=== PATIENT | female | born 1955 | race African-American/Black ===

== ENCOUNTER → 2016-06-16 | Outpatient (CLI) | payer BC ==
[2016-03-24 11:19] VITALS: BP 146/78
== END ==
LOC: RAD 10:05
PROVIDERS: ATTEND Internal Medicine
DX: R20.2 Paresthesia of skin (principal); M54.17 Radiculopathy, lumbosacral region

== ENCOUNTER 2016-10-09 09:20 | Emergency (ER) | payer BC ==
[2016-10-09 09:28] VITALS: BP 163/79; BMI 42.3
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
== END 2016-10-09 10:49 | disposition home or self-care (01) ==
LOC: ER 09:34
DX: S60.221A Contusion of right hand, initial encounter (principal); X58.XXXA Exposure to other specified factors, initial encounter; Y92.9 Unspecified place or not applicable
CPT/HCPCS: 73130; 99282

== ENCOUNTER 2017-02-10 21:26 | Emergency (ER) | payer BC ==
[2017-02-10 21:38] VITALS: BMI 44.6
--- NOTE | 2017-02-10 21:43 | DR.GENAD ---
HPI - PCP Primary Care Physician: CLIVE - HPI Comment HPI Comment: WORSE TONIGHT. NO FEVER. NO EAR DRAINAGE. NO HEARING CHANGE. - Complaint/Symptoms Chief Complaint Doctors Comments: LEFT EAR PAIN RADIATING TO BACK OF LEFT EAR AND LT NECK TIMES 2 DAYS. Chief Complaint:: PT STATES" RIGHT BEHIND MY LEFT EAR HURTS MY HEAD AND NECK HURT ON THE SAME SIDE" - Nurses notes reviewed Nurses Notes Review: Yes - Source History Provided: Patient - Mode of Arrival Mode of Arrival: Ambulatory - Timing Onset of Chief Complaint: 02/08/17 Came on: Suddenly - Duration Duration: Constant Duration: Days - Severity Severity: Moderate PMH - PMH Past Medical History: Yes Past Medical History: Dyslipidemia, GERD, Hypertension Past Surgical History: Yes Surgical History: Appendectomy, , Tonsillectomy - Family History History of Family Medical Conditions: Yes Family Medical History: Diabetes Mellitus, Cancer, Heart Failure, Hypertension - Social History Does any household member use tobacco: No Alcohol Use: None Do you use any recreational Drugs:: No Lives With: Family Lives Where: Home - infectious screening In the last 2 months have you had wt loss of >10#?: NO Have you had fever, night sweats or hemotysis?: No Have you traveled outside the country in the last 6 months?: No Isolation: Standard ROS - Review of Systems Constitutional: No Symptoms Reported Eyes: No Symptoms Reported ENTM: Ear Pain. negative: Nose Discharge, Nose Congestion, Throat Pain Respiratoy: No Symptoms Reported Cardiovascular: No Symptoms Reported Gastrointestinal/Abdominal: No Symptoms Reported Genitourinary: No Symptoms Reported Neurological: No Symptoms Reported Musculoskeletal: No Symptoms Reported, Foot Integumentary: No Symptoms Reported Hematologic/Lymphatic: No Symptoms Reported Endocrine: No Symptoms Reported All Other Systems: Reviewed and Negative PE - Vital Signs Vitals: Temperature 98.1 F Pulse Rate [Left Brachial] 76 Pulse Rate 80 Respiratory Rate 18 Blood Pressure [Left Arm] 168/86 Blood Pressure [Right Arm] 146/78 Blood Pressure 176/96 O2 Sat by Pulse Oximetry 98 - General Limitations: No Limitations General Appearance: Alert - Head Head Exam: Normal Inspection - Eyes Eye exam: Normal Appearance - ENT ENT Exam: Normal Oropharynx, Mucous Membranes Moist. negative: TM's Normal Bilaterally (TM INFLAME LT EAR.) External Ear Exam: Mastoid Tenderness, Pain with Movement, External Tenderness TM/Canal Exam: Bilateral Erythema Nose Exam: Normal Nose Exam Mouth Exam: Normal Inspection Throat Exam: Normal Inspection - Neck Neck Exam: Trachea Midline, Tenderness (LATERAL LEFT NECK.). negative: Meningismus, Lymphadenopathy - Chest Chest Inspection: Symmetric Chest Wall Rise. negative: Tenderness - Respiratory Respiratory Exam: Normal Lung Sounds Bilat Respiratory Exam: Bilateral Rhonchi, Lower Rhonchi - Cardiovascular Cardiovascular Exam: Regular Rate, Normal Rhythm, Normal Heart Sounds - Abdominal Exam Abdominal Exam: Normal Bowel Sounds, Soft. negative: Tenderness - Extremities Extremities Exam: Tenderness - Back Back Exam: Normal Inspection - Neurologic Neurological Exam: Alert, Oriented X3 - Psychiatric Psychiatric Exam: Normal Affect, Normal Mood - Skin Skin Exam: Normal Color MDM - Additional Information Additional Information Obtained From: Family - Differential Diagnosis Differential Diagnosis: LEFT EAR PAIN, MASTOID PAIN LEFT, LATERAL LEFT NECKK PAIN, OTITIS MEDIA, Course - Treatment Treatment: SEE ORDERS. - Education/Counseling Education/Counseling: Patient, Family, Education Educated On: Treatment, Diagnosis, Needs for Follow Up ROR - XRAY XRAY Interpreted by: Radiologist XRAY Findings: REPORT DISCUSS WITH PATIENT. - Diagnosis Discharge Problem: Otitis media, Pain of left mastoid - Discharge Plan Disposition: 01 HOME, SELF-CARE Condition: Stable Prescriptions: Acetaminophen with Codeine [Tylenol/Codeine #3 300-30 mg] 1 tab PO Q6H PRN #15 tab PRN Reason: Pain Amoxicillin/Potassium Clav [Augmentin Xr 1,000-62.5 Tab] 1 tab PO Q12H #20 tab.sr Ibuprofen [MOTRIN TAB 800 MG *] 800 mg PO Q8H PRN 30 Days #90 tab PRN Reason: Pain/Inflammation - Follow ups/Referrals Follow ups/Referrals: Jose Boyce [Primary Care Provider] - 2 days - Instructions Instructions: Otitis Media, Adult, [id number] Additional Instructions: RETURN TO ED IF WORSE.
[2017-02-10] MEDS ORDERED: TORADOL 60 MG VIAL IM ONE (21:46)
[2017-02-10] MEDS ORDERED: ROCEPHIN VIAL 1 GM IM ONE (21:46)
[2017-02-10] MEDS ORDERED: TORADOL 30 MG VIAL ONE ×2 (21:57→22:02)
[2017-02-10] MEDS ORDERED: ROCEPHIN VIAL 1 GM ONE (21:57)
--- NOTE | 2017-02-10 22:36 | CT ---
CT brain without contrast Indication: Left ear and neck pain Comparison: None available the Technique: Multiple axial images of the brain were obtained from the skull base to the vertex without administra tion of IV contrast. Findings: There is no opacification of the left mastoid air cells. No acute intraparenchymal hemorrhage or mass can be identified. No extra-axial fluid collections are seen. No alteration in the attenuation of the brain parenchyma can be identified to suggest acute o r subacute ischemic change. The ventricular system is symmetric and nondilated. The extracranial st ructures are grossly unremarkable. IMPRESSION: 1. No acute intracranial process is identified. Reported By:
--- NOTE | 2017-02-10 22:38 | CT ---
CT neck soft tissues without contrast Indication: Left-sided neck, ear and head pain Technique: Helical CT images of the neck soft tissues were obtained without IV contrast. Reformatted images in the coronal and sagittal planes were also generated for review. Comparison: None Findings: Limited images of the skullbase demonstrate no acute abnormality. Evaluation is severely limited without intravenous contrast. Given these limitations, the nasopharynx , oropharynx, hypopharynx and larynx are grossly normal in appearance. The base of the tongue and lym phoid tissues of Waldeyer's ring are also grossly normal. The parotid, submandibular and thyroid glan ds are unremarkable. No discrete mass lesions, fluid collection or lymphadenopathy is identified with in the neck. Review of bone windows demonstrate mild degenerative disc disease and facet arthropathy of the cervic al spine, most significant at C6-C7. The visualized upper lungs are clear. Impression: Mild degenerative changes of the cervical spine, as above. Otherwise, grossly unremarkable noncontrast CT of the neck soft tissues Reported By:
[2017-02-10 23:16] VITALS: BP 168/86
== END 2017-02-10 23:17 | disposition home or self-care (01) ==
LOC: ER 21:29
DX: H66.92 Otitis media, unspecified, left ear (principal); H92.02 Otalgia, left ear
CPT/HCPCS: 70450; 70490; 96372; 99283; J0696; J1885

== ENCOUNTER 2017-05-06 08:17 | Emergency (ER) | payer BC ==
[2017-05-06 08:28] VITALS: BMI 43.8
[2017-05-06] MEDS ORDERED: CATAPRES TAB 0.2 MG PO ONE ×2 (08:29→09:29)
--- NOTE | 2017-05-06 08:30 | DR.DIZZY ---
HPI - Time seen Time seen: 08:25 - Complaint Chief Complaint Doctor Comments: Patient presents via [facility] with complaint of dizziness this morning upon awakening. She admits to a frontal headache, throbbing and weakness. She aslo admits to chest heaviness. She denies nausea, vomiting or diarrhea. She admits to a history of hypertension. - Duration Duration: Since Onset Duration: Hours - Location of Weakness Weakness Location: None - Context Onset: While asleep Does pt take pot. toxic medication?: No History of: None Stroke Symptoms: Dizziness - Severity Severity: Normal activity level - Modifying factors Worsens: Nothing - Associated signs and symptoms Associated Signs and Symptoms: Headache PMH - PMH Past Medical History: Dyslipidemia, GERD, Hypertension Past Surgical History: Yes Surgical History: Appendectomy, , Tonsillectomy - Family History Family Medical History: Diabetes Mellitus, Cancer, Heart Failure, Hypertension - Social History Do you use any recreational Drugs:: No ROS - Review of Systems Constitutional: Weakness Eyes: No Symptoms Reported ENTM: No Symptoms Reported Respiratoy: No Symptoms Reported Cardiovascular: No Symptoms Reported Gastrointestinal/Abdominal: No Symptoms Reported Genitourinary: No Symptoms Reported Neurological: No Symptoms Reported Musculoskeletal: No Symptoms Reported Integumentary: No Symptoms Reported Hematologic/Lymphatic: No Symptoms Reported Endocrine: No Symptoms Reported Psychiatric: No Symptoms Reported All Other Systems: Reviewed and Negative PE - Vital Signs Vitals: Temperature 98.7 F Pulse Rate [Right Brachial] 81 Pulse Rate 69 Respiratory Rate 16 Blood Pressure [Left Arm] 168/86 Blood Pressure [Right Arm] 182/83 Blood Pressure 180/83 O2 Sat by Pulse Oximetry 100 - General Limitations: No Limitations General Appearance: Alert. negative: Lethargic, Obtunded - Head Head Exam: Normal Inspection, Atraumatic - Eyes Eye exam: Normal Appearance, PERRL, EOMI Pupils: Regular, Round: Bilateral Sclera/Conjunctival: Normal Inspection: Bilateral Anterior Chamber: Normal Inspection: Bilateral Posterior Chamber: Deferred: Bilateral - ENT ENT Exam: Normal Exam, Normal Oropharynx - Neck Neck Exam: Normal Inspection, Full ROM - Chest Chest Inspection: Normal Inspection, Symmetric Chest Wall Rise - Respiratory Respiratory Exam: Bilateral Clear to Auscultation - Cardiovascular Cardiovascular Exam: Regular Rate - Abdominal Exam Abdominal Exam: Normal Inspection, Normal Bowel Sounds Abdominal Tenderness: negative: RUQ, RLQ, LUQ, LLQ, Epigastrium, Suprapubic, Diffuse, Mild, Moderate, Severe, Other - Rectal Rectal Exam: Deferred - Extremeties Extremities Exam: Normal Inspection, Full ROM - Back Back Exam: Normal Inspection - Neurologic Neurological Exam: Alert, Oriented X3, CN II-XII Intact Cranial Nerve Exam: EOM Function (II, III, IV, ): Normal Motor Strength - LUE: 3/5 Upper Motor Neuron Exam: Reinaldo Neglect: Normal Sensory Exam Upper Extremity: Light Touch: Normal Sensory Exam Lower Extremity: Light Touch: Normal - Psychiatric Psychiatric Exam: Normal Affect - Skin Skin Exam: Warm, Dry, Intact Course - Reevaluation 1st: Improved ROR - Labs Reviewed Result Diagrams: 05/06/17 08:37 05/06/17 08:37 Laboratory: WBC 5.7 X10^3/uL (3.6-10.0) 05/06/17 08:37 RBC 4.18 X10^6/uL (3.5-5.4) 05/06/17 08:37 Hgb 11.9 g/dL (12.0-16.0) L 05/06/17 08:37 Hct 35.8 % (36.0-47.0) L 05/06/17 08:37 MCV 85.5 fL (80.0-100.0) 05/06/17 08:37 MCH 28.6 pg (27.0-34.0) 05/06/17 08:37 MCHC 33.4 g/dL (33.0-35.0) 05/06/17 08:37 RDW 13.7 % (11.6-16.5) 05/06/17 08:37 Plt Count 133 X10^3/uL (150.0-450.0) L 05/06/17 08:37 MPV 10.7 fL (7.4-11.0) 05/06/17 08:37 Neut % (Auto) 47.4 % (42.0-75.0) 05/06/17 08:37 Lymph % (Auto) 35.1 % (21.0-51.0) 05/06/17 08:37 [place] % (Auto) 11.5 % (0.0-13.0) 05/06/17 08:37 Eos % (Auto) 4.9 % (0.9-2.9) H 05/06/17 08:37 Baso % (Auto) 1.1 % (0.2-1.0) H 05/06/17 08:37 Neut # (Auto) 2.7 x10^3/uL (2.2-4.8) 05/06/17 08:37 Lymph # (Auto) 2.0 X10^3/uL (1.3-2.9) 05/06/17 08:37 [place] # (Auto) 0.7 x10^3/uL (0.3-0.8) 05/06/17 08:37 Eos # (Auto) 0.3 x10^3/uL (0.0-0.2) H 05/06/17 08:37 Baso # (Auto) 0.1 X10^3/uL (0.0-0.1) 05/06/17 08:37 Absolute Nucleated RBC 0.0 /100WBC 05/06/17 08:37 Sodium 140 mmol/L (136-145) 05/06/17 08:37 Corrected Sodium 141 mmol/L (136-145) 05/06/17 08:37 Potassium 3.5 mmol/L (3.5-5.1) 05/06/17 08:37 Chloride 104 mmol/L (98-107) 05/06/17 08:37 Carbon Dioxide 30.4 mmol/L (21-32) 05/06/17 08:37 BUN 18 mg/dL (7-18) 05/06/17 08:37 Creatinine 0.89 mg/dL (0.55-1.02) 05/06/17 08:37 Est GFR (MDRD) Af Amer > 60 (>60) 05/06/17 08:37 Est GFR (MDRD) Non-Af > 60 (>60) 05/06/17 08:37 Glucose 125 mg/dL (65-99) H 05/06/17 08:37 POC Glucose (mg/dL) 138 mg/dL (65-99) H 05/06/17 08:34 Calcium 8.3 mg/dL (8.5-10.1) L 05/06/17 08:37 Corrected Calcium 8.9 mg/dL (8.5-10.1) 05/06/17 08:37 Magnesium 1.9 mg/dL (1.7-2.9) 05/06/17 08:37 Total Bilirubin 0.50 mg/dL (0.2-1.0) 05/06/17 08:37 AST 17 Units/L (15-37) 05/06/17 08:37 ALT 25 Units/L (12-78) 05/06/17 08:37 Alkaline Phosphatase 66 Units/L (46-116) 05/06/17 08:37 Creatine Kinase 183 Units/L (26-192) 05/06/17 08:37 CK-MB (CK-2) 1.4 ng/mL (0-4.0) 05/06/17 08:37 CK/CKMB % Calc 0.8 % (<4) 05/06/17 08:37 Troponin I < 0.02 ng/mL (0-1.5) 05/06/17 08:37 Total Protein 7.4 g/dL (6.4-8.2) 05/06/17 08:37 Albumin 3.3 g/dL (3.4-5.0) L 05/06/17 08:37 Globulin 4.1 g/dL (2.5-4.5) 05/06/17 08:37 Albumin/Globulin Ratio 0.8 Ratio (1.1-2.1) L 05/06/17 08:37 Specimen Type Clean catch urine 05/06/17 09:01 Urine Color Yellow (YELLOW) 05/06/17 09:01 Urine Appearance Clear (CLEAR) 05/06/17 09:01 Urine pH 7.0 (5.0 - 8.0) 05/06/17 09:01 Ur Specific [place] 1.010 (1.000-1.030) 05/06/17 09:01 Urine Protein Negative (NEGATIVE) 05/06/17 09:01 Urine Glucose (UA) Negative (NEGATIVE) 05/06/17 09:01 Urine Ketones Negative (NEGATIVE) 05/06/17 09:01 Urine Occult Blood Negative (NEGATIVE) 05/06/17 09:01 Urine Nitrite Negative (NEGATIVE) 05/06/17 09:01 Urine Bilirubin Negative (NEGATIVE) 05/06/17 09:01 Urine Urobilinogen Normal (NORMAL) 05/06/17 09:01 Ur Leukocyte Esterase Negative (NEGATIVE) 05/06/17 09:01 Urine RBC None seen /HPF (NONE SEEN) 05/06/17 09:01 Urine WBC None seen /HPF (NONE SEEN) 05/06/17 09:01 Ur Squamous Epith Cells Rare /HPF (NEGATIVE) 05/06/17 09:01 Amorphous Sediment Trace /HPF (NEGATIVE) 05/06/17 09:01 Urine Bacteria Negative /HPF (NEGATIVE) 05/06/17 09:01 Ur Culture Indicated? No/not indicated 05/06/17 09:01 - XRAY XRAY Interpreted by: Radiologist (CT Brain: No acute intracranial process can be identified. 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 Lungs and pleural spaces are clear. Osseous structures are intact. Impression: hypertensive configuration. No acute cardiopulmonary disease.) - Diagnosis Discharge Problem: Dizziness Hypertension Qualifiers: Hypertension type: essential hypertension Qualified Code(s): I10 - Essential ( primary) hypertension - Discharge Plan Condition: Stable - Follow ups/Referrals Follow ups/Referrals: Jose Boyce [Primary Care Provider] - 3 days - Instructions
[2017-05-06] MEDS ORDERED: NS 1000 ML 1,000 ML ONE (08:31)
[2017-05-06] MEDS ORDERED: CATAPRES TAB 0.2 MG ONE ×2 (08:35→09:32)
[2017-05-06 08:45] LABS: BASOPHILS # (AUTO) 0.1 X10^3/uL (0.0-0.1); BASOPHILS % (AUTO) 1.1 % (0.2-1.0); EOSINOPHILS # (AUTO) 0.3 x10^3/uL (0.0-0.2); EOSINOPHILS % (AUTO) 4.9 % (0.9-2.9); HEMATOCRIT 35.8 % (36.0-47.0); HEMOGLOBIN 11.9 g/dL (12.0-16.0); LYMPHOCYTES % (AUTO) 35.1 % (21.0-51.0); MEAN CORPUSCULAR HEMOGLOBIN 28.6 pg (27.0-34.0); MEAN CORPUSCULAR HGB CONC 33.4 g/dL (33.0-35.0); MEAN CORPUSCULAR VOLUME 85.5 fL (80.0-100.0); MEAN PLATELET VOLUME 10.7 fL (7.4-11.0); MONOCYTES # (AUTO) 0.7 x10^3/uL (0.3-0.8); MONOCYTES % (AUTO) 11.5 % (0.0-13.0); NEUTROPHILS # (AUTO) 2.7 x10^3/uL (2.2-4.8); NEUTROPHILS % (AUTO) 47.4 % (42.0-75.0); PLATELET COUNT 133 X10^3/uL (150.0-450.0); RED BLOOD COUNT 4.18 X10^6/uL (3.5-5.4); RED CELL DISTRIBUTION WIDTH 13.7 % (11.6-16.5); WHITE BLOOD COUNT 5.7 X10^3/uL (3.6-10.0)
--- NOTE | 2017-05-06 08:57 | CT ---
HISTORY: Headache, dizziness, nausea Study: CT brain without contrast Comparison: 02/10/2017. Technique: Multiple axial images of the brain were obtained from the skull base to the vertex without administra tion of IV contrast. Findings: No acute intraparenchymal hemorrhage or mass can be identified. No extra-axial fluid collections are seen. No alteration in the attenuation of the brain parenchyma can be identified to suggest acute o r subacute ischemic change. The ventricular system is symmetric and nondilated. There is chronic pe riventricular white matter disease observed. IMPRESSION: 1. No acute intracranial process can be identified. 2. 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 Reported By:
[2017-05-06] MEDS ORDERED: NS 1000 ML 1,000 ML IV SCH (09:00)
[2017-05-06 09:06] LABS: BLOOD UREA NITROGEN 18 mg/dL (7-18); CALCIUM 8.3 mg/dL (8.5-10.1); CARBON DIOXIDE 30.4 mmol/L (21-32); CHLORIDE 104 mmol/L (98-107); COR NA(FOR HYPERGLY) 141 mmol/L (136-145); CREATININE 0.89 mg/dL (0.55-1.02); SODIUM 140 mmol/L (136-145); TROPONIN I < 0.02 ng/mL (0-1.5); eGFR BLACK RACES > 60 (>60); eGFR NON BLACK RACES > 60 (>60)
[2017-05-06 09:10] LABS: ALANINE AMINOTRANSFERASE 25 Units/L (12-78); ALBUMIN 3.3 g/dL (3.4-5.0); ALKALINE PHOSPHATASE 66 Units/L (46-116); ASPARTATE AMINO TRANSFERASE 17 Units/L (15-37); CKMB % 0.8 % (<4); COR CA(FOR HYPOALB) 8.9 mg/dL (8.5-10.1); CREATINE KINASE 183 Units/L (26-192); CREATINE KINASE MB 1.4 ng/mL (0-4.0); MAGNESIUM 1.9 mg/dL (1.7-2.9); TOTAL PROTEIN 7.4 g/dL (6.4-8.2)
[2017-05-06 09:26] LABS: BILIRUBIN,URINE NEGATIVE (NEGATIVE); BLOOD/HEMOGLOBIN,URINE NEGATIVE (NEGATIVE); GLUCOSE, URINE NEGATIVE (NEGATIVE); KETONES,URINE NEGATIVE (NEGATIVE); LEUKOCYTE ESTERASE ,URINE NEGATIVE (NEGATIVE); NITRITES,URINE NEGATIVE (NEGATIVE); PROTEIN,URINE NEGATIVE (NEGATIVE); UROBILINOGEN,URINE NORMAL (NORMAL)
[2017-05-06 09:40] LABS: AMORPHOUS SEDIMENT,UR TRACE /HPF (NEGATIVE); APPEARANCE,URINE CLEAR (CLEAR); BACTERIA,URINE NEGATIVE /HPF (NEGATIVE); COLOR,URINE YELLOW (YELLOW); RBC,URINE NONE SEEN /HPF (NONE SEEN); SQUAMOUS EPITHELIAL CELL,UR RARE /HPF (NEGATIVE)
--- NOTE | 2017-05-06 09:46 | RAD ---
HISTORY: Dizziness, nausea, headache Study: Single-view chest, done portably Comparison: 03/22/2016. Findings: Trachea is midline. There is cardiomegaly with aortic uncoiling. Lungs and pleural spaces are clear. Osseous structures are intact. IMPRESSION: Hypertensive configuration. No acute cardiopulmonary disease. Reported By:
[2017-05-06 10:25] VITALS: BP 172/81
== END 2017-05-06 10:35 | disposition home or self-care (01) ==
LOC: ER 08:19
DX: R42 Dizziness and giddiness (principal); R51 Headache; R94.31 Abnormal electrocardiogram [ECG] [EKG]
CPT/HCPCS: 36415; 70450; 71045; 80053; 81001; 82550; 82553; 83735; 84484; 85025; 93005; 93010; 96365; 96367; 99283

== ENCOUNTER 2017-06-07 10:30 | Emergency (ER) | payer BC ==
[2017-06-07 10:33] VITALS: BP 140/74; BMI 44.3
--- NOTE | 2017-06-07 11:06 | DR.EXTPAIN ---
HPI - Time seen Time seen: 10:50 - PCP Primary Care Physician: DR. DUFFY - HPI Comment HPI Comment: NO HISTORY OF GOUT. NO FEVER. PAIN INCREASE WHEN WALKING. - Complaint/Symptoms Chief Complaint Doctor Comments: PAIN LEFT PIG TOE. NOTED AFTER FALLING. Chief Complaint:: PATIENT STATED THAT SHE FELL YESTERDAY AND THINKS SHE MIGHT HAVE BROKEN HER LEFT BIG TOE. - Nurses notes reviewed Nurses Notes Review: Yes - Source History Provided: Patient - Mode of arrival Mode of Arrival: Ambulatory - Timing Onset of Chief Complaint: 06/06/17 - Context History of: Arthritis - Associated signs and symptoms Associated Signs and Symptoms: Pain, Swelling PMH - PMH Past Medical History: Yes Past Medical History: Dyslipidemia, GERD, Hypertension Past Surgical History: Yes Surgical History: Appendectomy, , Tonsillectomy - Family History History of Family Medical Conditions: Yes Family Medical History: Diabetes Mellitus, Cancer, Heart Failure, Hypertension - Social History Does patient currently use any type of tobacco product: No Have you used tobacco products in the last 12 months: No Type of Tobacco Use: None Does any household member use tobacco: No Alcohol Use: None Do you use any recreational Drugs:: No Lives With: Family Lives Where: Home - infectious screening In the last 2 months have you had wt loss of >10#?: NO Have you had fever, night sweats or hemotysis?: No Have you traveled outside the country in the last 6 months?: No Isolation: Standard ROS - Review of Systems Constitutional: No Symptoms Reported Eyes: No Symptoms Reported ENTM: No Symptoms Reported Respiratoy: No Symptoms Reported Cardiovascular: No Symptoms Reported Gastrointestinal/Abdominal: No Symptoms Reported Genitourinary: No Symptoms Reported Neurological: No Symptoms Reported Musculoskeletal: Left, Foot Integumentary: Change in Color, Bruises Hematologic/Lymphatic: No Symptoms Reported, Easy Bruising Endocrine: No Symptoms Reported All Other Systems: Reviewed and Negative PE - Vital Signs Vitals: Temperature 97.9 F Pulse Rate 75 Respiratory Rate 20 Blood Pressure [Left Arm] 172/81 Blood Pressure [Right Arm] 182/83 Blood Pressure 140/74 O2 Sat by Pulse Oximetry 99 - General Limitations: No Limitations General Appearance: Alert - Head Head Exam: Normal Inspection - Eyes Eye exam: Normal Appearance - ENT ENT Exam: Normal External Ear Exam - Neck Neck Exam: Trachea Midline - Chest Chest Inspection: Symmetric Chest Wall Rise - Respiratory Respiratory Exam: Normal Lung Sounds Bilat Respiratory Exam: Bilateral Clear to Auscultation - Cardiovascular Cardiovascular Exam: Regular Rate, Normal Rhythm, Normal Heart Sounds - Abdominal Exam Abdominal Exam: Normal Bowel Sounds, Soft. negative: Tenderness - Extremities Extremities Exam: Tenderness (SWELLING, BRUISING AND TENDERNESS LT FOOT AND BIG TOE. ROM DECREASE.) - Lower Extremities Neurovascular/Tendon Exam: Normal Capillary Refill Gait Exam: Observed & Limited by Pain - Back Back Exam: Tenderness (LOWER BACK) - Neurological Neurological Exam: Alert, Oriented X3 - Psychiatric Psychiatric Exam: Normal Affect, Normal Mood - Skin Skin Exam: Erythema MDM - Differential Diagnosis Differential Diagnosis: Abrasion, Contusion, Fracture, Sprain Course - Treatment Treatment: SEE ORDERS. - Education/Counseling Education/Counseling: Patient, Family, Education Educated On: Diagnosis, Needs for Follow Up ROR - Labs Reviewed Laboratory: Uric Acid 5.1 mg/dL (2.6-6.0) 06/07/17 11:08 - XRAY XRAY Interpreted by: Radiologist XRAY Findings: REPORT DISCUSS WITH PATIENT. - Diagnosis Discharge Problem: Foot sprain Qualifiers: Encounter type: initial encounter Laterality: left Qualified Code(s): S93.602A - Unspecified sprain of left foot, initial encounter - Discharge Plan Disposition: 01 HOME, SELF-CARE Condition: Stable Prescriptions: Ibuprofen [MOTRIN TAB 800 MG *] 800 mg PO Q8H PRN #30 tab PRN Reason: Pain/Inflammation Tramadol HCl 50 mg PO Q8H PRN #15 tablet PRN Reason: - Follow ups/Referrals Follow ups/Referrals: Jose Duffy [Primary Care Provider] - 3 days - Instructions Instructions: Foot Sprain Additional Instructions: RETURN TO ED IF WORSE.
--- NOTE | 2017-06-07 11:38 | RAD ---
HISTORY: Pain status post fall. Study: Three views of the left foot. Comparison: None. Findings: Moderate to severe degenerative changes are seen about the left foot and ankle. Large calcaneal enthe sophytes. No acute cortical disruption or dislocation can be identified. No significant soft tissue swelling or injury can be seen. IMPRESSION: No acute osseous abnormality. Reported By:
== END 2017-06-07 12:07 | disposition home or self-care (01) ==
LOC: ER 10:37
DX: S93.602A Unspecified sprain of left foot, initial encounter (principal); W19.XXXA Unspecified fall, initial encounter; Y92.9 Unspecified place or not applicable
CPT/HCPCS: 36415; 73630; 84550; 99282

== ENCOUNTER 2023-06-05 17:30 | Observation (INO) ==
--- NOTE | 2023-06-05 18:01 | EKG ---
Test Reason : Chest pain Blood Pressure : */* mmHG Vent. Rate : 77 BPM Atrial Rate : 77 BPM P-R Int : 190 ms QRS Dur : 140 ms QT Int : 416 ms P-R-T Axes : 39 -41 -12 degrees QTc Int : 470 ms Normal sinus rhythm Left axis deviation Right bundle branch block Septal infarct , age undetermined T wave abnormality, consider lateral ischemia Abnormal ECG No previous ECGs available Confirmed by Joseph Gardner ([id number]) on 06/09/2023 8:23:39 AM Referred By: Confirmed By: Joseph Gardner
[2023-06-05 18:13] LABS: BASOPHILS # (AUTO) 0.1 X10^3/uL (0.0-0.1); BASOPHILS % (AUTO) 1.1 % (0.2-1.0); EOSINOPHILS # (AUTO) 0.2 x10^3/uL (0.0-0.2); EOSINOPHILS % (AUTO) 2.5 % (0.9-2.9); HEMATOCRIT 39.8 % (36.0-47.0); HEMOGLOBIN 13.2 g/dL (12.0-16.0); LYMPHOCYTES # (AUTO) 1.8 X10^3/uL (1.3-2.9); LYMPHOCYTES % (AUTO) 18.1 % (21.0-51.0); MEAN CORPUSCULAR HEMOGLOBIN 28.7 pg (27.0-34.0); MEAN CORPUSCULAR HGB CONC 33.1 g/dL (33.0-35.0); MEAN CORPUSCULAR VOLUME 86.7 fL (80.0-100.0); MEAN PLATELET VOLUME 9.6 fL (7.4-11.0); MONOCYTES # (AUTO) 0.8 x10^3/uL (0.3-0.8); MONOCYTES % (AUTO) 8.5 % (0.0-13.0); NEUTROPHILS # (AUTO) 6.9 x10^3/uL (2.2-4.8); NEUTROPHILS % (AUTO) 69.8 % (42.0-75.0); PLATELET COUNT 149 X10^3/uL (150.0-450.0); RED CELL DISTRIBUTION WIDTH 13.5 % (11.6-16.5); WHITE BLOOD COUNT 9.8 X10^3/uL (3.6-10.0)
[2023-06-05] MEDS: MORPHINE SULFATE INJ 2 MG INJ IVP ONE (18:14)
[2023-06-05] MEDS: NS 1,000 ML IV 1,000 ML IV SCH (18:15)
[2023-06-05 18:19] LABS: INR 1.19 (0.8-1.3)
--- NOTE | 2023-06-05 18:24 | DR.CP ---
HPI Time Seen Time Seen by Provider: 06/05/23 18:00 PCP Primary Care Physician: Maribel Complaint Chief Complaint Doctor Comments: This patient stated she was ready in the ER is at home she developed some chest pain. Patient stated that she was hungry so she went to eat but the chest pain persisted and she called EMS. Chief Complaint:: Pt states she was raking the yard today, started having CP, thought she was hungry so she went in to eat and lay down. CP persisted so she called EMS. EMS states when they arrived on scene, pt was "panicking" and was SOB. Once pt in ambulance and calmed down, she was having no respiratory issues. BP was initially 186/120 on scene, did come down after meds administered. Pt was given NTG x1, ASA x3. Pain started 10/10, down to 7/10 on arrival to ER. 12 lead on ambulance showed sinus tach w/ PACs and RBBB COVID-19 Coronavirus risk:travel/contact w/high risk person: No Has patient experienced Coronavirus symptoms: No Source History Provided: Patient and EMS Mode of Arrival Mode of Arrival: EMS Timing Onset of Chief Complaint: 06/05/23 Location Chest Pain Radiation Location: None Associated Signs and Symptoms Associated Signs and Symptoms: None PMH PMH Past Medical History: Yes Past Medical History: Coronary Artery Disease, Diabetes, Dyslipidemia, GERD and Hypertension Past Medical History Comment: A.Fib, Type 2 DM, carotid artery stenosis, OA, DJD Past Surgical History: Yes Surgical History: Appendectomy, and Tonsillectomy Family History History of Family Medical Conditions: Yes Family Medical History: Diabetes Mellitus, Cancer, Heart Failure and Hypertension Social History Does patient currently use any type of tobacco product: No Have you used tobacco products in the last 12 months: No Type of Tobacco Use: None Does any household member use tobacco: No Alcohol Use: None Do you use any recreational Drugs:: No Lives Where: Home Travel Risk Coronavirus risk:travel/contact w/high risk person: No Has patient experienced Coronavirus symptoms: No Infectious screening Have you traveled outside the country in the last 6 months?: No Isolation: Standard ROS Review of Systems Constitutional: Other (Substernal chest pain) Eyes: No Symptoms Reported ENTM: No Symptoms Reported Respiratoy: No Symptoms Reported Cardiovascular: Chest Pain Gastrointestinal/Abdominal: No Symptoms Reported Genitourinary: No Symptoms Reported Neurological: No Symptoms Reported Musculoskeletal: No Symptoms Reported Integumentary: No Symptoms Reported Hematologic/Lymphatic: No Symptoms Reported Endocrine: No Symptoms Reported Psychiatric: No Symptoms Reported PE Vitals Vitals: Vital Signs Temperature 98.0 F Pulse Rate 79 Pulse Rate 80 Pulse Rate 79 Pulse Rate 80 Pulse Rate 81 Pulse Rate 79 Pulse Rate 90 Pulse Rate 81 Pulse Rate 83 Pulse Rate 78 Pulse Rate 75 Pulse Rate 86 Pulse Rate 82 Pulse Rate 98 Pulse Rate 100 Pulse Rate 82 Pulse Rate 76 Pulse Rate 81 Pulse Rate 97 Pulse Rate 93 Respiratory Rate 23 Respiratory Rate 22 Respiratory Rate 22 Respiratory Rate 22 Respiratory Rate 20 Respiratory Rate 23 Respiratory Rate 18 Respiratory Rate 40 Respiratory Rate 20 Respiratory Rate 28 Respiratory Rate 20 Respiratory Rate 28 Respiratory Rate 23 Respiratory Rate 23 Respiratory Rate 25 Respiratory Rate 24 Respiratory Rate 38 Respiratory Rate 30 Respiratory Rate 41 Respiratory Rate 27 Respiratory Rate 32 Blood Pressure 148/78 Blood Pressure 161/79 Blood Pressure 168/86 Blood Pressure 149/81 Blood Pressure 111/73 Blood Pressure 145/84 Blood Pressure 154/88 Blood Pressure 154/88 O2 Sat by Pulse Oximetry 96 O2 Sat by Pulse Oximetry 97 O2 Sat by Pulse Oximetry 97 O2 Sat by Pulse Oximetry 96 O2 Sat by Pulse Oximetry 95 O2 Sat by Pulse Oximetry 96 O2 Sat by Pulse Oximetry 96 O2 Sat by Pulse Oximetry 98 O2 Sat by Pulse Oximetry 98 O2 Sat by Pulse Oximetry 98 O2 Sat by Pulse Oximetry 98 O2 Sat by Pulse Oximetry 97 O2 Sat by Pulse Oximetry 97 General Limitations: No Limitations General Appearance: In Distress (moderate distress) Head Head Exam: Normal Inspection, Atraumatic and Normocephalic Eyes Eye exam: Normal Appearance, PERRL and EOMI ENT ENT Exam: Normal Exam, Normal Oropharynx and Normal External Ear Exam Chest Chest Inspection: Normal Inspection and Symmetric Chest Wall Rise Respiratory Respiratory Exam: Normal Lung Sounds Bilat Cardiovascular Cardiovascular Exam: Regular Rate and Normal Rhythm Abdominal Exam Abdominal Exam: Normal Inspection, Normal Bowel Sounds and Soft Extremities Extremities Exam: Normal Inspection and Full ROM Back Back Exam: Normal Inspection and Full ROM Neurologic Neurological Exam: Alert and CN II-XII Intact Psychiatric Psychiatric Exam: Normal Affect and Normal Mood Skin Skin Exam: Warm, Dry and Intact MDM Differential Diagnosis Differential Diagnosis: Angina, CHF and Myocardial Infarction COURSE Treatment Treatment: Patient may relatively stable during ER visit. He did have some chest pain when he first got here as 7 she was given 2 mg of morphine with some relief of the chest pain went down to 3 she stated she went to the bathroom and she broke the way down to be more patient was given a GI cocktail seem to help a little bit. We did cardiac enzymes on the patient first troponin was 9.1 her EKG showed normal sinus rhythm with a right bundle branch block septal infarct age undetermined. We did a magnesium level on this patient is 1.9 and her potassium of 3.2 patient was given magnesium 400 mg of mag oxide in ER and also was given 40 mill equivalents of potassium chloride. The patient had a chest x- ray that was negative for any acute thoracic abnormality. We did call Dr. López at [phone] and he stated was set the patient to further rule out AMI. The patient was stable at the time of transfer to the floor and they did call the did call with case management and they said this patient could be referred to observation for further evaluation and treatment. [facility] Labs Reviewed Laboratory Results Reviewed?: Yes 06/05/23 18:00 06/05/23 18:00 Laboratory: WBC 9.8 X10^3/uL (3.6-10.0) 06/05/23 18:00 RBC 4.60 X10^6/uL (3.5-5.4) 06/05/23 18:00 Hgb 13.2 g/dL (12.0-16.0) 06/05/23 18:00 Hct 39.8 % (36.0-47.0) 06/05/23 18:00 MCV 86.7 fL (80.0-100.0) 06/05/23 18:00 MCH 28.7 pg (27.0-34.0) 06/05/23 18:00 MCHC 33.1 g/dL (33.0-35.0) 06/05/23 18:00 RDW 13.5 % (11.6-16.5) 06/05/23 18:00 Plt Count 149 X10^3/uL (150.0-450.0) L 06/05/23 18:00 MPV 9.6 fL (7.4-11.0) 06/05/23 18:00 Neut % (Auto) 69.8 % (42.0-75.0) 06/05/23 18:00 Lymph % (Auto) 18.1 % (21.0-51.0) L 06/05/23 18:00 [place] % (Auto) 8.5 % (0.0-13.0) 06/05/23 18:00 Eos % (Auto) 2.5 % (0.9-2.9) 06/05/23 18:00 Baso % (Auto) 1.1 % (0.2-1.0) H 06/05/23 18:00 Neut # (Auto) 6.9 x10^3/uL (2.2-4.8) H 06/05/23 18:00 Lymph # (Auto) 1.8 X10^3/uL (1.3-2.9) 06/05/23 18:00 [place] # (Auto) 0.8 x10^3/uL (0.3-0.8) 06/05/23 18:00 Eos # (Auto) 0.2 x10^3/uL (0.0-0.2) 06/05/23 18:00 Baso # (Auto) 0.1 X10^3/uL (0.0-0.1) 06/05/23 18:00 Absolute Nucleated RBC 0.0 /100WBC 06/05/23 18:00 PT 14.9 SECONDS (11.8-14.3) 06/05/23 18:00 INR Target Range - 06/05/23 18:00 INR 1.19 (0.8-1.3) 06/05/23 18:00 APTT 27.4 SECONDS (22.9-36.5) 06/05/23 18:00 PTT Comment - 06/05/23 18:00 Sodium 141 mmol/L (136-145) 06/05/23 18:00 Corrected Sodium 143 mmol/L (136-145) 06/05/23 18:00 Potassium 3.2 mmol/L (3.5-5.1) L 06/05/23 18:00 Chloride 103 mmol/L (98-107) 06/05/23 18:00 Carbon Dioxide 33.7 mmol/L (21-32) H 06/05/23 18:00 BUN 9 mg/dL (7-18) 06/05/23 18:00 Creatinine 1.01 mg/dL (0.55-1.02) 06/05/23 18:00 Est GFR (MDRD) Af Amer > 60 (>60) 06/05/23 18:00 Est GFR (MDRD) Non-Af 58 (>60) L 06/05/23 18:00 Glucose 168 mg/dL (65-99) H 06/05/23 18:00 Calcium 8.8 mg/dL (8.5-10.1) 06/05/23 18:00 Corrected Calcium 9.4 mg/dL (8.5-10.1) 06/05/23 18:00 Magnesium 1.9 mg/dL (2.0-2.9) L 06/05/23 18:00 Total Bilirubin 0.70 mg/dL (0.2-1.0) 06/05/23 18:00 AST 18 Units/L (15-37) 06/05/23 18:00 ALT 18 Units/L (12-78) 06/05/23 18:00 Alkaline Phosphatase 80 Units/L (46-116) 06/05/23 18:00 Creatine Kinase 119 Units/L (26-192) 06/05/23 18:00 Troponin I High Sens 8.7 ng/L (4.0-60.0) 06/05/23 19:41 Total Protein 7.4 g/dL (6.4-8.2) 06/05/23 18:00 Albumin 3.2 g/dL (3.4-5.0) L 06/05/23 18:00 Globulin 4.2 g/dL (2.5-4.5) 06/05/23 18:00 Albumin/Globulin Ratio 0.8 Ratio (1.1-2.1) L 06/05/23 18:00 Specimen Type Clean catch urine 06/05/23 20:14 Urine Color Yellow (YELLOW) 06/05/23 20:14 Urine Appearance Clear (CLEAR) 06/05/23 20:14 Urine pH 7.0 (5.0 - 8.0) 06/05/23 20:14 Ur Specific [place] 1.015 (1.000-1.030) 06/05/23 20:14 Urine Protein Negative (NEGATIVE) 06/05/23 20:14 Urine Glucose (UA) Negative (NEGATIVE) 06/05/23 20:14 Urine Ketones Negative (NEGATIVE) 06/05/23 20:14 Urine Blood Negative (NEGATIVE) 06/05/23 20:14 Urine Nitrite Negative (NEGATIVE) 06/05/23 20:14 Urine Bilirubin Negative (NEGATIVE) 06/05/23 20:14 Urine Urobilinogen 1+ (NORMAL) 06/05/23 20:14 Ur Leukocyte Esterase Negative (NEGATIVE) 06/05/23 20:14 Urine RBC None seen /HPF (0-3) 06/05/23 20:14 Urine WBC 0-2 /HPF (0-5) 06/05/23 20:14 Ur Squamous Epith Cells Rare /HPF (NEGATIVE) 06/05/23 20:14 Urine Bacteria 4+ /HPF (NEGATIVE) 06/05/23 20:14 Ur Culture Indicated? Yes/culture set up 06/05/23 20:14 Opioid Opioid Risk Tool Age (Carlos box if 16-45): No History of Preadolescent Sexual Abuse: No Total: 0 Total Score Risk Category: Low Risk Copyright: Karl HARVEY predicting aberrant behaviors Discharge Plan Diagnosis Discharge Problem: Angina of effort, Hypomagnesemia, Hypokalemia Discharge Plan Patient Disposition: 09 ADMITTED INPATIENT Condition: Stable Prescriptions: No Action carvedilol 12.5 mg tablet 12.5 mg PO BID amlodipine 10 mg tablet 10 mg PO QDAY hydrocodone-acetaminophen 7.5-325 mg tablet 1 tab PO BID PRN pantoprazole 40 mg tablet,delayed release (DR/EC) 40 mg PO QDAY nitroglycerin 0.4 mg tablet, sublingual 0.4 mg sublingual Q5M PRN (Reason: Chest Pain) losartan-hydrochlorothiazide 50-12.5 mg tablet 1 tab PO QDAY rosuvastatin 40 mg tablet 40 mg PO QPM Eliquis 5 mg tablet 5 mg PO BID aspirin [Aspir-81] 81 mg Tablet,Delayed Release (Dr/Ec) 81 mg PO QDAY Health Concerns: Post Hospitalization: new medications and changes needed to prevent readmission or further decline. Pt educated and given instructions on all concerns. Plan of Treatment: Continue with present treatment and follow up plan. Pt is to keep follow up appointment as instructed and take medications as ordered. Orders to Discharge Patient Discharge Orders: Transfer (Routine); Ordered 06/06/23 Ordered By: Johnny Murphy Follow ups/Referrals Follow ups/Referrals: Sagar López [Primary Care Provider] - 3 days Instructions Instructions: Angina Pectoris Stand Alone Forms: Post Hospital Follow Up Care
[2023-06-05 18:28] LABS: ALANINE AMINOTRANSFERASE 18 Units/L (12-78); ALBUMIN 3.2 g/dL (3.4-5.0); ALKALINE PHOSPHATASE 80 Units/L (46-116); BLOOD UREA NITROGEN 9 mg/dL (7-18); CALCIUM 8.8 mg/dL (8.5-10.1); CARBON DIOXIDE 33.7 mmol/L (21-32); CHLORIDE 103 mmol/L (98-107); COR CA(FOR HYPOALB) 9.4 mg/dL (8.5-10.1); COR NA(FOR HYPERGLY) 143 mmol/L (136-145); CREATINE KINASE 119 Units/L (26-192); CREATININE 1.01 mg/dL (0.55-1.02); GLUCOSE 168 mg/dL (65-99); MAGNESIUM 1.9 mg/dL (2.0-2.9); POTASSIUM 3.2 mmol/L (3.5-5.1); SODIUM 141 mmol/L (136-145); TOTAL PROTEIN 7.4 g/dL (6.4-8.2); eGFR NON BLACK RACES 58 (>60)
[2023-06-05 18:36] LABS: ASPARTATE AMINO TRANSFERASE 18 Units/L (15-37)
[2023-06-05] MEDS: MAG-OX TAB PO ONE (19:11)
[2023-06-05] MEDS: K-DUR TAB 20 MEQ PO ONE (19:11)
--- NOTE | 2023-06-05 19:47 | RAD ---
EXAM:CHEST, 1 VIEWHISTORY:CP, thought she was hungry so she went in to eat and lay down. CP persisted so she called EMS. EMS states when they arrived on scene, pt was "panicking" and was SOB.;COMPARISON:May 22, 2021TECHNIQUE:Chest radiographic imaging, AP portable projection, 1 imageFINDINGS:No cardiomegaly.No focal airspace disease.No pleural effusion.No pneumothorax.No acute osseous abnormality.IMPRESSION:No imaging findings of acute cardiopulmonary disease.THIS IS AN ELECTRONICALLY VERIFIED FINAL REPORT06/05/2023 7:44 PM - Electronically signed by Reagan Bob MD
--- NOTE | 2023-06-05 19:58 | EKG ---
Test Reason : chest pain Blood Pressure : */* mmHG Vent. Rate : 79 BPM Atrial Rate : * BPM P-R Int : * ms QRS Dur : 138 ms QT Int : 408 ms P-R-T Axes : * -44 -37 degrees QTc Int : 467 ms Atrial fibrillation Left axis deviation Right bundle branch block T wave abnormality, consider lateral ischemia Abnormal ECG When compared with ECG of 05-JUN-2023 17:58, (Unconfirmed) Atrial fibrillation has replaced Sinus rhythm Criteria for Septal infarct are no longer present Inverted T waves have replaced nonspecific T wave abnormality in Lateral leads Confirmed by Joseph Gardner ([id number]) on 06/09/2023 8:23:33 AM Referred By: Confirmed By: Joseph Gardner
[2023-06-05 20:23] LABS: BILIRUBIN,URINE NEGATIVE (NEGATIVE); BLOOD/HEMOGLOBIN,URINE NEGATIVE (NEGATIVE); GLUCOSE, URINE NEGATIVE (NEGATIVE); KETONES,URINE NEGATIVE (NEGATIVE); LEUKOCYTE ESTERASE ,URINE NEGATIVE (NEGATIVE); NITRITES,URINE NEGATIVE (NEGATIVE); PROTEIN,URINE NEGATIVE (NEGATIVE); UROBILINOGEN,URINE 1+ (NORMAL)
[2023-06-05 20:32] LABS: APPEARANCE,URINE CLEAR (CLEAR); BACTERIA,URINE 4+ /HPF (NEGATIVE); COLOR,URINE YELLOW (YELLOW); RBC,URINE NONE SEEN /HPF (0-3); SQUAMOUS EPITHELIAL CELL,UR RARE /HPF (NEGATIVE)
[2023-06-05] MEDS: LEVSIN/MAALOX/LIDOC VISC PO ONE (21:02)
[2023-06-06] MEDS ORDERED: NITROSTAT SL PRN ×2 (00:15→01:05)
[2023-06-06 01:43] VITALS: BMI 45.7
[2023-06-06] MEDS: NORCO 7.5/325 MG TAB PO PRN (02:55)
[2023-06-06 04:02] VITALS: RESP 20
[2023-06-06 05:29] LABS: BASOPHILS # (AUTO) 0.1 X10^3/uL (0.0-0.1); BASOPHILS % (AUTO) 0.6 % (0.2-1.0); EOSINOPHILS # (AUTO) 0.1 x10^3/uL (0.0-0.2); EOSINOPHILS % (AUTO) 1.2 % (0.9-2.9); HEMATOCRIT 37.9 % (36.0-47.0); HEMOGLOBIN 12.5 g/dL (12.0-16.0); LYMPHOCYTES # (AUTO) 1.6 X10^3/uL (1.3-2.9); LYMPHOCYTES % (AUTO) 14.3 % (21.0-51.0); MEAN CORPUSCULAR HEMOGLOBIN 28.5 pg (27.0-34.0); MEAN CORPUSCULAR VOLUME 86.4 fL (80.0-100.0); MEAN PLATELET VOLUME 10.7 fL (7.4-11.0); MONOCYTES # (AUTO) 1.1 x10^3/uL (0.3-0.8); MONOCYTES % (AUTO) 9.8 % (0.0-13.0); NEUTROPHILS # (AUTO) 8.3 x10^3/uL (2.2-4.8); NEUTROPHILS % (AUTO) 74.1 % (42.0-75.0); PLATELET COUNT 158 X10^3/uL (150.0-450.0); RED BLOOD COUNT 4.39 X10^6/uL (3.5-5.4); RED CELL DISTRIBUTION WIDTH 13.4 % (11.6-16.5); WHITE BLOOD COUNT 11.2 X10^3/uL (3.6-10.0)
[2023-06-06 05:52] LABS: ALANINE AMINOTRANSFERASE 16 Units/L (12-78); ALBUMIN 2.9 g/dL (3.4-5.0); ALKALINE PHOSPHATASE 76 Units/L (46-116); ASPARTATE AMINO TRANSFERASE 17 Units/L (15-37); BLOOD UREA NITROGEN 7 mg/dL (7-18); CALCIUM 8.4 mg/dL (8.5-10.1); CARBON DIOXIDE 29.3 mmol/L (21-32); CHLORIDE 101 mmol/L (98-107); COR CA(FOR HYPOALB) 9.3 mg/dL (8.5-10.1); COR NA(FOR HYPERGLY) 139 mmol/L (136-145); CREATININE 0.77 mg/dL (0.55-1.02); GLUCOSE 150 mg/dL (65-99); POTASSIUM 3.4 mmol/L (3.5-5.1); SODIUM 138 mmol/L (136-145); TOTAL PROTEIN 7.1 g/dL (6.4-8.2); eGFR NON BLACK RACES > 60 (>60)
[2023-06-06 06:09] LABS: CHOL/HDL RATIO 2.7 (0.0-5.0)
[2023-06-06] MEDS: MAG-OX TAB PO SCH (08:59)
[2023-06-06] MEDS: K-DUR TAB 20 MEQ PO SCH ×2 (09:00→09:12)
[2023-06-06] MEDS: CONSULT PHARMACY - POTASSIUM & MAGNESIUM XX SCH (09:02)
[2023-06-06] MEDS: ASPIRIN EC 81 MG PO SCH (09:02)
[2023-06-06] MEDS: COREG TAB 12.5 MG PO SCH (09:02)
[2023-06-06] MEDS: NORVASC TAB 10 MG PO SCH (09:03)
[2023-06-06] MEDS: ELIQUIS PO SCH (09:03)
[2023-06-06] MEDS: HYZAAR 50/12.5 MG PO SCH (09:03)
[2023-06-06] MEDS: PROTONIX TAB 40 MG PO SCH (09:04)
[2023-06-06] MEDS: ROCEPHIN VIAL 1 GRAM 1 G in NS 100 ML IV 100 ML IV SCH (11:07)
[2023-06-06 12:34] VITALS: BP 113/56; PULSE 67; TEMP 97.8; O2SAT 94
[2023-06-06] MEDS ORDERED: CRESTOR TAB 10 MG PO SCH (21:00)
[2023-06-06] MEDS ORDERED: PATIENT'S HOME MEDICATION (Rosuvastatin 40 mg tablet) PO SCH (21:00)
--- NOTE | 2023-06-09 11:32 | DR.SSS ---
SHORT STAY SUMMARY Admission Date Date of Admission: 06/05/23 Discharge Date Discharge Date: 06/06/23 Admission Diagnoses Admission Diagnoses: Chest pain rule out [place] Urinary tract infection Hypokalemia Discharge Diagnoses Discharge Diagnoses: Urinary tract infection Hypokalemia Hypomagnesemia Chief Complaint Chief Complaint: Chest pain History of Present Illness History of Present Illness: Patient is a 67-year-old female with a past medical history of coronary artery disease, diabetes, hypertension, hyperlipidemia and GERD who presented with chest pain. She states she was working in the yard and started having chest pressure. She presented to the ER, cardiac enzymes were negative, EKG did not show any acute changes. Patient's UA did show infection. She was admitted for telemetry monitoring and management. Past Medical History Past Medical History: Coronary Artery Disease, Diabetes, Dyslipidemia, GERD and Hypertension Additional Medical History: Muscle Weakness Past Surgical History Surgical History: and Tonsillectomy Allergies Allergies Allergy/AdvReac Type Severity Reaction Status Date / Time No Known Drug Allergies Allergy Unknown Verified 06/05/23 17:53 Medications Home Medications: No Known Drug Allergies Allergy (Unknown, Verified 06/05/23 17:53) CONTINUE taking the following medications amlodipine 10 mg tablet 10 mg PO QDAY 06/05/23 [History] apixaban 5 mg tablet (Eliquis) 5 mg PO BID 06/05/23 [History] aspirin 81 mg tablet,delayed release 81 mg PO QDAY 06/05/23 [History] carvedilol 12.5 mg tablet 12.5 mg PO BID 06/05/23 [History] hydrocodone 7.5 mg-acetaminophen 325 mg tablet 1 tab PO BID PRN 06/05/23 [History] losartan 50 mg-hydrochlorothiazide 12.5 mg tablet 1 tab PO QDAY 06/05/23 [History] nitroglycerin 0.4 mg sublingual tablet 0.4 mg sublingual Q5M PRN Chest Pain 06/05/23 [History] pantoprazole 40 mg tablet,delayed release 40 mg PO QDAY 06/05/23 [History] rosuvastatin 40 mg tablet 40 mg PO QPM 06/05/23 [History] New Prescriptions cephalexin 500 mg capsule 500 mg PO BID 5 days #10 caps 06/06/23 [Rx] magnesium oxide 500 mg capsule 500 mg PO QDAY 5 days #5 caps 06/06/23 [Rx] potassium chloride 20 mEq tablet,extended release 20 meq PO BID 5 days #10 tabs 06/06/23 [Rx] Family History Family Medical History: Diabetes Mellitus, Cancer and Hypertension Social History Does patient currently use any type of tobacco product: No Have you used tobacco products in the last 12 months: No Type of Tobacco Use: None Does any household member use tobacco: No Alcohol Use: None Drug Use: None Review of Systems Constitutional: No Symptoms Reported Eyes: No Symptoms Reported ENT: No Symptoms Reported Respiratory: No Symptoms Reported Cardiovascular: Chest Pain Gastrointestinal: No Symptoms Reported Genitourinary: No Symptoms Reported Musculoskeletal: No Symptoms Reported Skin: No Symptoms Reported Neurological: No Symptoms Reported Physical Exam Vital Signs: Last Vital Signs Temp 97.7 F 06/06/23 08:00 Pulse 89 06/06/23 08:00 Resp 20 06/06/23 08:00 BP 123/71 06/06/23 08:00 Pulse Ox 98 06/06/23 08:00 O2 Del Method Room Air 06/06/23 09:16 Oriented: Normal Eyes: Normal Nose: Normal Throat: Normal Respiratory: Clear Throughout Cardiovascular: Normal Auscultation: Bowel Sounds: Normal Palpation: Normal Tenderness: Normal Skin: Normal Musculoskeletal: Normal Psychiatric: Normal Mood Description: Calm Affect: Normal Speech Pattern: Clear and Appropriate Labs Labs: Laboratory Last Values WBC 11.2 X10^3/uL (3.6-10.0) H 06/06/23 04:53 RBC 4.39 X10^6/uL (3.5-5.4) 06/06/23 04:53 Hgb 12.5 g/dL (12.0-16.0) 06/06/23 04:53 Hct 37.9 % (36.0-47.0) 06/06/23 04:53 MCV 86.4 fL (80.0-100.0) 06/06/23 04:53 MCH 28.5 pg (27.0-34.0) 06/06/23 04:53 MCHC 33.0 g/dL (33.0-35.0) 06/06/23 04:53 RDW 13.4 % (11.6-16.5) 06/06/23 04:53 Plt Count 158 X10^3/uL (150.0-450.0) 06/06/23 04:53 MPV 10.7 fL (7.4-11.0) 06/06/23 04:53 Neut % (Auto) 74.1 % (42.0-75.0) 06/06/23 04:53 Lymph % (Auto) 14.3 % (21.0-51.0) L 06/06/23 04:53 [place] % (Auto) 9.8 % (0.0-13.0) 06/06/23 04:53 Eos % (Auto) 1.2 % (0.9-2.9) 06/06/23 04:53 Baso % (Auto) 0.6 % (0.2-1.0) 06/06/23 04:53 Neut # (Auto) 8.3 x10^3/uL (2.2-4.8) H 06/06/23 04:53 Lymph # (Auto) 1.6 X10^3/uL (1.3-2.9) 06/06/23 04:53 [place] # (Auto) 1.1 x10^3/uL (0.3-0.8) H 06/06/23 04:53 Eos # (Auto) 0.1 x10^3/uL (0.0-0.2) 06/06/23 04:53 Baso # (Auto) 0.1 X10^3/uL (0.0-0.1) 06/06/23 04:53 Absolute Nucleated RBC 0.0 /100WBC 06/06/23 04:53 PT 14.9 SECONDS (11.8-14.3) 06/05/23 18:00 INR Target Range - 06/05/23 18:00 INR 1.19 (0.8-1.3) 06/05/23 18:00 APTT 27.4 SECONDS (22.9-36.5) 06/05/23 18:00 PTT Comment - 06/05/23 18:00 Sodium 138 mmol/L (136-145) 06/06/23 04:53 Corrected Sodium 139 mmol/L (136-145) 06/06/23 04:53 Potassium 3.4 mmol/L (3.5-5.1) L 06/06/23 04:53 Chloride 101 mmol/L (98-107) 06/06/23 04:53 Carbon Dioxide 29.3 mmol/L (21-32) 06/06/23 04:53 BUN 7 mg/dL (7-18) 06/06/23 04:53 Creatinine 0.77 mg/dL (0.55-1.02) 06/06/23 04:53 Est GFR (MDRD) Af Amer > 60 (>60) 06/06/23 04:53 Est GFR (MDRD) Non-Af > 60 (>60) 06/06/23 04:53 Glucose 150 mg/dL (65-99) H 06/06/23 04:53 Calcium 8.4 mg/dL (8.5-10.1) L 06/06/23 04:53 Corrected Calcium 9.3 mg/dL (8.5-10.1) 06/06/23 04:53 Magnesium 1.8 mg/dL (2.0-2.9) L 06/06/23 04:53 Total Bilirubin 0.70 mg/dL (0.2-1.0) 06/06/23 04:53 AST 17 Units/L (15-37) 06/06/23 04:53 ALT 16 Units/L (12-78) 06/06/23 04:53 Alkaline Phosphatase 76 Units/L (46-116) 06/06/23 04:53 Creatine Kinase 119 Units/L (26-192) 06/05/23 18:00 Troponin I High Sens 11.4 ng/L (4.0-60.0) 06/06/23 07:56 Total Protein 7.1 g/dL (6.4-8.2) 06/06/23 04:53 Albumin 2.9 g/dL (3.4-5.0) L 06/06/23 04:53 Globulin 4.2 g/dL (2.5-4.5) 06/06/23 04:53 Albumin/Globulin Ratio 0.7 Ratio (1.1-2.1) L 06/06/23 04:53 Triglycerides 52 mg/dL (0-150) 06/06/23 04:53 Cholesterol 154 mg/dL (0-200) 06/06/23 04:53 LDL Cholesterol, Calc 86 mg/dL (0-100) 06/06/23 04:53 HDL Cholesterol 58 mg/dL (40-60) 06/06/23 04:53 Cholesterol/HDL Ratio 2.7 (0.0-5.0) 06/06/23 04:53 Specimen Type Clean catch urine 06/05/23 20:14 Urine Color Yellow (YELLOW) 06/05/23 20:14 Urine Appearance Clear (CLEAR) 06/05/23 20:14 Urine pH 7.0 (5.0 - 8.0) 06/05/23 20:14 Ur Specific [place] 1.015 (1.000-1.030) 06/05/23 20:14 Urine Protein Negative (NEGATIVE) 06/05/23 20:14 Urine Glucose (UA) Negative (NEGATIVE) 06/05/23 20:14 Urine Ketones Negative (NEGATIVE) 06/05/23 20:14 Urine Blood Negative (NEGATIVE) 06/05/23 20:14 Urine Nitrite Negative (NEGATIVE) 06/05/23 20:14 Urine Bilirubin Negative (NEGATIVE) 06/05/23 20:14 Urine Urobilinogen 1+ (NORMAL) 06/05/23 20:14 Ur Leukocyte Esterase Negative (NEGATIVE) 06/05/23 20:14 Urine RBC None seen /HPF (0-3) 06/05/23 20:14 Urine WBC 0-2 /HPF (0-5) 06/05/23 20:14 Ur Squamous Epith Cells Rare /HPF (NEGATIVE) 06/05/23 20:14 Urine Bacteria 4+ /HPF (NEGATIVE) 06/05/23 20:14 Ur Culture Indicated? Yes/culture set up 06/05/23 20:14 Hospital Course Hospital Course: Patient was admitted with telemetry. She did not have any further episodes of chest pain. Her labs were monitored and electrolytes were replaced as needed. Her home medications were restarted. All her cardiac enzymes were negative. UA did show UTI, patient was started on IV antibiotics. She was stable to be discharged home and follow-up with PCP and cardiology as scheduled. She was sen t home on Keflex for 5 days.She was also discharged with potassium and magnesium supplements. Discharge Medications Discharge Medications: Home Medication List amlodipine 10 mg tablet 10 mg PO QDAY 06/05/23 [History] apixaban 5 mg tablet (Eliquis) 5 mg PO BID 06/05/23 [History] aspirin 81 mg tablet,delayed release 81 mg PO QDAY 06/05/23 [History] carvedilol 12.5 mg tablet 12.5 mg PO BID 06/05/23 [History] hydrocodone 7.5 mg-acetaminophen 325 mg tablet 1 tab PO BID PRN 06/05/23 [History] losartan 50 mg-hydrochlorothiazide 12.5 mg tablet 1 tab PO QDAY 06/05/23 [History] nitroglycerin 0.4 mg sublingual tablet 0.4 mg sublingual Q5M PRN Chest Pain 06/05/23 [History] pantoprazole 40 mg tablet,delayed release 40 mg PO QDAY 06/05/23 [History] rosuvastatin 40 mg tablet 40 mg PO QPM 06/05/23 [History] cephalexin 500 mg capsule 500 mg PO BID 5 days #10 caps 06/06/23 [Rx] magnesium oxide 500 mg capsule 500 mg PO QDAY 5 days #5 caps 06/06/23 [Rx] potassium chloride 20 mEq tablet,extended release 20 meq PO BID 5 days #10 tabs 06/06/23 [Rx] Prescriptions: cephalexin Kakkar,Kamala magnesium oxide Kakkar,Kamala potassium chloride Kakkar,Kamala Discharge Disposition Discharge Disposition: home Discharge Plan Discharge Plan Patient Disposition: HOME, SELF-CARE Condition: Stable Health Concerns: Post Hospitalization: new medications and changes needed to prevent readmission or further decline. Pt educated and given instructions on all concerns. Plan of Treatment: Continue with present treatment and follow up plan. Pt is to keep follow up appointment as instructed and take medications as ordered. Prescription drug monitoring program results: PDMP reviewed and no concerns identified Prescriptions: New cephalexin 500 mg capsule 500 mg PO BID 5 Days Qty: 10 0RF potassium chloride 20 mEq tablet extended release 20 meq PO BID 5 Days Qty: 10 0RF magnesium oxide 500 mg capsule 500 mg PO QDAY 5 Days Qty: 5 0RF Continued carvedilol 12.5 mg tablet 12.5 mg PO BID amlodipine 10 mg tablet 10 mg PO QDAY hydrocodone-acetaminophen 7.5-325 mg tablet 1 tab PO BID PRN pantoprazole 40 mg tablet,delayed release (DR/EC) 40 mg PO QDAY nitroglycerin 0.4 mg tablet, sublingual 0.4 mg sublingual Q5M PRN (Reason: Chest Pain) losartan-hydrochlorothiazide 50-12.5 mg tablet 1 tab PO QDAY rosuvastatin 40 mg tablet 40 mg PO QPM Eliquis 5 mg tablet 5 mg PO BID aspirin 81 mg Tablet,Delayed Release (Dr/Ec) 81 mg PO QDAY Orders to Discharge Patient Discharge Orders: Discharge (Routine); Ordered 06/06/23 Ordered By: Kamala Holder Follow ups/Referrals Follow ups/Referrals: Sagar López [Primary Care Provider] - 3 days Instructions Instructions: Angina Pectoris Stand Alone Forms: Excuse From Work or School, Post Hospital Follow Up Care
== END 2023-06-06 14:25 | disposition home or self-care (01) ==
LOC: ER 17:30 → MED/SURG 17:30
PROVIDERS: ADMIT Family Medicine; ATTEND Family Medicine